=== PATIENT | female | born 1945 | race Caucasian/White ===

== ENCOUNTER → 2016-11-07 | Outpatient (CLI) | payer MEDICARE, OTHER ==
[~2016-11-07] MED LIST: ADV500 IH; ALBUTEROL IH; APIX5TAB PO; AZEL137S8 NASAL; FLUTICASONE PROP NASAL; METO50 PO; ROSU10 PO; SPIR25 PO; VALS40TA4 PO
== END | disposition home or self-care (01) ==
LOC: RADPV 13:43
PROVIDERS: ATTEND Internal Medicine Critical Care Medicine
DX: J45.909 Unspecified asthma, uncomplicated (principal); I51.7 Cardiomegaly; I70.0 Atherosclerosis of aorta; Z95.0 Presence of cardiac pacemaker
CPT/HCPCS: 71020

== ENCOUNTER → 2016-11-09 | Outpatient (CLI) | payer MEDICARE, OTHER ==
[~2016-11-09] VITALS: Ht 157.5 cm; Wt 64.0 kg
[2016-11-09 11:14] VITALS: BP 110/46
== END | disposition home or self-care (01) ==
LOC: SRCNTR 11:12
PROVIDERS: ATTEND Internal Medicine Critical Care Medicine
DX: J45.20 Mild intermittent asthma, uncomplicated (principal); I10 Essential (primary) hypertension; I73.00 Raynaud's syndrome without gangrene; J30.9 Allergic rhinitis, unspecified; E11.9 Type 2 diabetes mellitus without complications; R05 Cough; J91.8 Pleural effusion in other conditions classified elsewhere
CPT/HCPCS: G0463

== ENCOUNTER → 2017-02-08 | Outpatient (CLI) | payer MEDICARE, OTHER ==
[~2017-02-08] VITALS: Ht 157.5 cm; Wt 65.4 kg
[2017-02-08 14:51] VITALS: BP 141/69
== END | disposition home or self-care (01) ==
LOC: SRCNTR 14:47
PROVIDERS: ATTEND Internal Medicine Critical Care Medicine
DX: J45.20 Mild intermittent asthma, uncomplicated (principal); E11.9 Type 2 diabetes mellitus without complications; I11.9 Hypertensive heart disease without heart failure; I48.91 Unspecified atrial fibrillation; I73.00 Raynaud's syndrome without gangrene; J90 Pleural effusion, not elsewhere classified; Z79.01 Long term (current) use of anticoagulants; Z87.891 Personal history of nicotine dependence; Z95.0 Presence of cardiac pacemaker; Z95.810 Presence of automatic (implantable) cardiac defibrillator; Z98.890 Other specified postprocedural states
CPT/HCPCS: G0463

== ENCOUNTER → 2017-06-30 | Outpatient (CLI) | payer MEDICARE, OTHER ==
[~2017-06-30] VITALS: Ht 157.5 cm; Wt 66.0 kg
[2017-06-30 10:57] VITALS: BP 122/62
== END | disposition home or self-care (01) ==
LOC: SRCNTR 10:25
PROVIDERS: ATTEND Internal Medicine Critical Care Medicine
DX: J45.20 Mild intermittent asthma, uncomplicated (principal); I10 Essential (primary) hypertension; J30.9 Allergic rhinitis, unspecified; I73.00 Raynaud's syndrome without gangrene; E11.9 Type 2 diabetes mellitus without complications; J91.8 Pleural effusion in other conditions classified elsewhere; Z88.8 Allergy status to other drugs, medicaments and biological substances; Z87.891 Personal history of nicotine dependence
CPT/HCPCS: G0463

== ENCOUNTER → 2017-09-29 | Outpatient (CLI) | payer MEDICARE, OTHER ==
[~2017-09-29] VITALS: Ht 157.5 cm; Wt 68.5 kg
[2017-09-29 10:49] VITALS: BP 148/70
== END | disposition home or self-care (01) ==
LOC: SRCNTR 10:38
PROVIDERS: ATTEND Internal Medicine Critical Care Medicine
DX: J45.20 Mild intermittent asthma, uncomplicated (principal); I10 Essential (primary) hypertension; I73.00 Raynaud's syndrome without gangrene; J30.9 Allergic rhinitis, unspecified; E11.9 Type 2 diabetes mellitus without complications; J91.8 Pleural effusion in other conditions classified elsewhere
CPT/HCPCS: G0463

== ENCOUNTER → 2018-01-01 | Outpatient (CLI) | payer MEDICARE, OTHER ==
[~2018-01-01] VITALS: Ht 157.5 cm; Wt 67.0 kg
[~2018-01-01] MED LIST changes: +ALEN70TA48 PO
[2018-01-01 11:04] VITALS: BP 132/66
== END | disposition home or self-care (01) ==
LOC: SRCNTR 11:03
PROVIDERS: ATTEND Internal Medicine Critical Care Medicine
DX: J45.20 Mild intermittent asthma, uncomplicated (principal); J91.8 Pleural effusion in other conditions classified elsewhere; J30.9 Allergic rhinitis, unspecified; I10 Essential (primary) hypertension; I73.00 Raynaud's syndrome without gangrene; E11.9 Type 2 diabetes mellitus without complications
CPT/HCPCS: G0463

== ENCOUNTER → 2018-06-25 | Outpatient (CLI) | payer MEDICARE, OTHER ==
[~2018-06-25] VITALS: Ht 157.5 cm; Wt 68.0 kg
[2018-06-25 14:46] VITALS: BP 133/72
== END | disposition home or self-care (01) ==
LOC: SRCNTR 14:39
PROVIDERS: ATTEND Internal Medicine Critical Care Medicine
DX: J45.20 Mild intermittent asthma, uncomplicated (principal); I10 Essential (primary) hypertension; I73.00 Raynaud's syndrome without gangrene; J30.9 Allergic rhinitis, unspecified; E11.9 Type 2 diabetes mellitus without complications; J91.8 Pleural effusion in other conditions classified elsewhere
CPT/HCPCS: G0463

== ENCOUNTER → 2018-09-24 | Outpatient (CLI) | payer MEDICARE, OTHER ==
[~2018-09-24] MED LIST changes: +ALEN70TA10 PO; -ALEN70TA48 PO; -ROSU10 PO; +ROSU10TA22 PO
== END | disposition home or self-care (01) ==
LOC: RADPV 10:39
PROVIDERS: ATTEND Internal Medicine Critical Care Medicine
DX: I11.0 Hypertensive heart disease with heart failure (principal); I50.9 Heart failure, unspecified; I70.0 Atherosclerosis of aorta

== ENCOUNTER → 2018-09-25 | Outpatient (CLI) | payer MEDICARE, OTHER ==
[~2018-09-25] VITALS: Ht 157.5 cm; Wt 66.0 kg
[2018-09-25 09:23] VITALS: BP 121/60
== END | disposition home or self-care (01) ==
LOC: SRCNTR 09:12
PROVIDERS: ATTEND Internal Medicine Critical Care Medicine
DX: E11.9 Type 2 diabetes mellitus without complications (principal); I10 Essential (primary) hypertension; J45.20 Mild intermittent asthma, uncomplicated; I73.00 Raynaud's syndrome without gangrene; J91.8 Pleural effusion in other conditions classified elsewhere
CPT/HCPCS: G0463

== ENCOUNTER → 2019-07-11 | Outpatient (CLI) | payer MEDICARE, OTHER ==
[~2019-07-11] VITALS: Ht 157.5 cm; Wt 67.5 kg
[2019-07-11 10:03] VITALS: BP 127/60
== END | disposition home or self-care (01) ==
LOC: SRCNTR 10:02
PROVIDERS: ATTEND Internal Medicine Critical Care Medicine
DX: J45.20 Mild intermittent asthma, uncomplicated (principal); I10 Essential (primary) hypertension; I73.00 Raynaud's syndrome without gangrene; J30.9 Allergic rhinitis, unspecified; E11.9 Type 2 diabetes mellitus without complications; J91.8 Pleural effusion in other conditions classified elsewhere
CPT/HCPCS: G0463